=== PATIENT | female | born 1980 | race Caucasian/White ===

== ENCOUNTER → 2017-06-06 | Outpatient (REF) | payer BC ==
[2017-06-06 20:48] LABS: MEAN CORPUSCULAR HEMOGLOBIN 28.6 pg (27.0-33.0); MEAN CORPUSCULAR HGB CONC 32.9 g/dl (32.0-36.5); MEAN CORPUSCULAR VOLUME 86.9 fl (80.0-96.0); PLATELET COUNT, AUTOMATED 306 10^3/uL (150-450); RED CELL DISTRIBUTION WIDTH 12.9 % (11.5-14.5); WHITE BLOOD COUNT 9.5 10^3/uL (4.0-10.0)
[2017-06-06 21:01] LABS: ALBUMIN 3.8 GM/DL (3.2-5.2); ALBUMIN/GLOBULIN RATIO 1.12 (1.00-1.93); ALKALINE PHOSPHATASE 27 U/L (45-117); ALT/SGPT 23 U/L (12-78); ANION GAP 5 MEQ/L (8-16); AST/SGOT 12 U/L (15-37); BILIRUBIN,TOTAL 0.3 MG/DL (0.2-1.0); BLOOD UREA NITROGEN 11 MG/DL (7-18); CALCIUM LEVEL 9.4 MG/DL (8.5-10.1); CARBON DIOXIDE LEVEL 31 MEQ/L (21-32); CHLORIDE LEVEL 105 MEQ/L (98-107); CREATININE FOR GFR 0.76 MG/DL (0.55-1.02); GLOMERULAR FILTRATION RATE > 60.0 (>60); GLUCOSE, FASTING 65 MG/DL (70-105); POTASSIUM SERUM 4.6 MEQ/L (3.5-5.1); SODIUM LEVEL 141 MEQ/L (136-145); TOTAL PROTEIN 7.2 GM/DL (6.4-8.2)
== END ==
LOC: M SFHCLERA 17:29
PROVIDERS: ATTEND Physician Assistant
DX: K21.9 Gastro-esophageal reflux disease without esophagitis (principal); R63.5 Abnormal weight gain; Z20.9 Contact with and (suspected) exposure to unspecified communicable disease

== ENCOUNTER → 2017-08-23 | Outpatient (REF) | payer BC | LOC: M SFHCWAGY 15:30 | DX: Z12.4 Encounter for screening for malignant neoplasm of cervix (principal) | CPT/HCPCS: G0123 ==

== ENCOUNTER 2018-01-22 05:47 | Emergency (ER) | payer BC ==
[2018-01-22 06:49] LABS: BASO # 0.1 10^3/uL (0.0-0.2); BASO % 0.7 % (0.0-1.0); EOS # 0.3 10^3/uL (0.0-0.50); EOS % 3.5 % (0.0-3.0); HEMATOCRIT 38.6 % (36.0-47.0); HEMOGLOBIN 12.8 g/dl (12.0-15.5); IMMATURE GRANULOCYTE % 0.3 % (0-3.0); LYMPH # 2.6 10^3/uL (1.5-4.5); LYMPH % 36.8 % (24.0-44.0); MEAN CORPUSCULAR HEMOGLOBIN 28.2 pg (27.0-33.0); MEAN CORPUSCULAR HGB CONC 33.2 g/dl (32.0-36.5); MONO # 0.5 10^3/uL (0.0-0.8); MONO % 7.3 % (0.0-5.0); NEUTROPHILS # 3.7 10^3/uL (1.8-7.7); NEUTROPHILS % 51.4 % (36.0-66.0); PLATELET COUNT, AUTOMATED 250 10^3/uL (150-450); RED BLOOD COUNT 4.54 10^6/uL (4.00-5.40); RED CELL DISTRIBUTION WIDTH 13.1 % (11.5-14.5); WHITE BLOOD COUNT 7.2 10^3/uL (4.0-10.0)
[2018-01-22 07:05] LABS: CONTROL LINE HCG INT CTR LINE PRESENT; HCG, SERUM QUALITATIVE NEGATIVE (NEGATIVE)
[2018-01-22 07:19] LABS: ALBUMIN 3.6 GM/DL (3.2-5.2); ALBUMIN/GLOBULIN RATIO 1.09 (1.00-1.93); ALKALINE PHOSPHATASE 29 U/L (45-117); ALT/SGPT 29 U/L (12-78); AMYLASE 46 U/L (25-115); ANION GAP 6 MEQ/L (8-16); AST/SGOT 16 U/L (7-37); BILIRUBIN,DIRECT < 0.1 MG/DL (0.0-0.2); BILIRUBIN,TOTAL 0.2 MG/DL (0.2-1.0); BLOOD UREA NITROGEN 18 MG/DL (7-18); CALCIUM LEVEL 8.7 MG/DL (8.5-10.1); CARBON DIOXIDE LEVEL 25 MEQ/L (21-32); CHLORIDE LEVEL 110 MEQ/L (98-107); CREATININE FOR GFR 0.83 MG/DL (0.55-1.30); GLOMERULAR FILTRATION RATE > 60.0 (>60); GLUCOSE, FASTING 98 MG/DL (70-100); LIPASE 198 U/L (73-393); POTASSIUM SERUM 4.3 MEQ/L (3.5-5.1); SODIUM LEVEL 141 MEQ/L (136-145); TOTAL PROTEIN 6.9 GM/DL (6.4-8.2)
== END 2018-01-22 10:04 | disposition home or self-care (01) ==
LOC: M ED 05:47
DX: K80.20 Calculus of gallbladder without cholecystitis without obstruction (principal); I10 Essential (primary) hypertension; R10.10 Upper abdominal pain, unspecified; K76.0 Fatty (change of) liver, not elsewhere classified; E03.9 Hypothyroidism, unspecified; L40.9 Psoriasis, unspecified; Z79.899 Other long term (current) drug therapy; Z88.8 Allergy status to other drugs, medicaments and biological substances
CPT/HCPCS: 76705

== ENCOUNTER 2018-02-07 10:42 | Day surgery (SDC) | payer BC ==
[~2018-02-07 10:42] MED LIST: LIDOCAINE 2% MDV 20 ML VIAL As Ordered; PROPOFOL 200 MG/20 ML VIAL As Ordered
[2018-02-07] MEDS: NS 1,000 ML IV (10:56)
== END 2018-02-07 11:48 | disposition home or self-care (01) ==
LOC: M OPP 10:42
DX: K29.70 Gastritis, unspecified, without bleeding (principal); E03.9 Hypothyroidism, unspecified; K21.9 Gastro-esophageal reflux disease without esophagitis; Z88.8 Allergy status to other drugs, medicaments and biological substances; Z87.19 Personal history of other diseases of the digestive system
CPT/HCPCS: 43239

== ENCOUNTER 2018-03-19 07:11 | Day surgery (SDC) | payer SELFPAY, BC ==
[2018-03-19] MEDS: LR 1,000 ML IV ×2 (07:55→10:03)
[2018-03-19 08:11] LABS: CONTROL LINE UCG INT CTR LINE PRESENT; URINE PREG TEST NEGATIVE (NEGATIVE)
[2018-03-19] MEDS ORDERED: MIDAZOLAM INJ 2 MG/2 ML VIAL (J2250) As Ordered (09:19)
[2018-03-19] MEDS ORDERED: PROPOFOL 200 MG/20 ML VIAL As Ordered (09:19)
[2018-03-19] MEDS ORDERED: LIDOCAINE 2% INJ 100 MG/5 ML SDV (FOR ANES.) As Ordered (09:19)
[2018-03-19] MEDS ORDERED: ONDANSETRON 4MG/2ML VIAL (J2405) As Ordered (09:19)
[2018-03-19] MEDS ORDERED: ROCURONIUM BROMIDE 50 MG/5 ML VIAL As Ordered (09:19)
[2018-03-19] MEDS ORDERED: fentaNYL 100 MCG/2 ML INJECTION (J3010) As Ordered (09:19)
[2018-03-19] MEDS ORDERED: dexameTHASONE 4 MG/ML 1ML VIAL (J1100) As Ordered (09:19)
[2018-03-19] MEDS ORDERED: KETOROLAC 60 MG/2 ML VIAL (J1885) As Ordered (09:25)
[2018-03-19] MEDS ORDERED: GLYCOPYRROLATE INJ 0.2 MG/ML 2 ML VIAL As Ordered ×2 (09:37)
[2018-03-19] MEDS ORDERED: NEOSTIGMINE 10 MG/10 ML VIAL (J2710) As Ordered (09:37)
[2018-03-19] MEDS: BUPIVACAINE/EPIN 0.25% 30 ML VIAL As Ordered (09:49)
[2018-03-19] MEDS ORDERED: NORCO, ANEXSIA 5/325MG TABLET (HYDROcodone/ACETAMINOPHEN) PO (10:30)
[2018-03-19] MEDS ORDERED: HYDROMORPHONE HCL 0.5 MG/ 0.5 ML SYRINGE (J1170 PER 1) IV (10:30)
[2018-03-19] MEDS ORDERED: ONDANSETRON 4MG/2ML VIAL (J2405) IV (10:30)
[2018-03-19] MEDS ORDERED: fentaNYL 100 MCG/2 ML INJECTION (J3010) IV (10:30)
[2018-03-19] MEDS: PERCOCET 5MG/325MG TAB PO ×2 (10:40→14:04)
[2018-03-19] MEDS ORDERED: PERCOCET 5MG/325MG TAB As Ordered (14:01)
== END 2018-03-19 14:35 | disposition home or self-care (01) ==
LOC: M SDC 07:11
DX: K80.20 Calculus of gallbladder without cholecystitis without obstruction (principal); E03.9 Hypothyroidism, unspecified; K21.9 Gastro-esophageal reflux disease without esophagitis; Z88.1 Allergy status to other antibiotic agents
CPT/HCPCS: 47562

== ENCOUNTER → 2020-08-18 | Outpatient (CLI) | payer SELFPAY ==
[~2020-08-18] MED LIST changes: -LIDOCAINE 2% MDV 20 ML VIAL As Ordered; +OMEP-358 PO; -PROPOFOL 200 MG/20 ML VIAL As Ordered
== END ==
LOC: M LABSMTC 13:42
PROVIDERS: ATTEND Pediatrics
DX: Z20.822 Contact with and (suspected) exposure to COVID-19 (principal)

== ENCOUNTER → 2021-01-15 | Outpatient (REF) | payer OTHER | LOC: M LAB REF 18:14 | PROVIDERS: ATTEND Physician Assistant | DX: L13.8 Other specified bullous disorders (principal) ==

== ENCOUNTER → 2021-01-25 | Outpatient (CLI) | payer OTHER ==
[2021-01-25 12:11] LABS: HEMATOCRIT 45.3 % (36.0-47.0); HEMOGLOBIN 14.4 g/dl (12.0-15.5); MEAN CORPUSCULAR HEMOGLOBIN 27.8 pg (27.0-33.0); MEAN CORPUSCULAR HGB CONC 31.8 g/dl (32.0-36.5); MEAN CORPUSCULAR VOLUME 87.5 fl (80.0-96.0); PLATELET COUNT, AUTOMATED 288 10^3/uL (150-450); RED BLOOD COUNT 5.18 10^6/uL (4.00-5.40); WHITE BLOOD COUNT 7.4 10^3/uL (4.0-10.0)
[2021-01-25 12:38] LABS: ALBUMIN 3.7 GM/DL (3.2-5.2); ALT/SGPT 38 U/L (12-78); BILIRUBIN,DIRECT < 0.1 MG/DL (0.0-0.2); BILIRUBIN,TOTAL 0.3 MG/DL (0.2-1.0)
[2021-01-26 16:12] LABS: G6PD2 5.24 x10E6/uL (3.77-5.28)
== END ==
LOC: M LAB 11:04
PROVIDERS: ATTEND Physician Assistant
DX: Z79.899 Other long term (current) drug therapy (principal)

== ENCOUNTER → 2021-02-08 | Outpatient (CLI) | payer OTHER ==
[2021-02-08 16:00] LABS: HEMATOCRIT 44.5 % (36.0-47.0); HEMOGLOBIN 14.2 g/dl (12.0-15.5); MEAN CORPUSCULAR HEMOGLOBIN 27.8 pg (27.0-33.0); MEAN CORPUSCULAR HGB CONC 31.9 g/dl (32.0-36.5); MEAN CORPUSCULAR VOLUME 87.1 fl (80.0-96.0); PLATELET COUNT, AUTOMATED 293 10^3/uL (150-450); RED BLOOD COUNT 5.11 10^6/uL (4.00-5.40); WHITE BLOOD COUNT 7.6 10^3/uL (4.0-10.0)
[2021-02-08 16:31] LABS: ALBUMIN 3.6 GM/DL (3.2-5.2); BILIRUBIN,DIRECT 0.1 MG/DL (0.0-0.2); BILIRUBIN,TOTAL 0.5 MG/DL (0.2-1.0); TOTAL PROTEIN 6.6 GM/DL (6.4-8.2)
== END ==
LOC: M WUC 13:02
PROVIDERS: ATTEND Physician Assistant
DX: L13.8 Other specified bullous disorders (principal)

== ENCOUNTER → 2021-03-05 | Outpatient (CLI) | payer OTHER ==
[2021-03-05 16:18] LABS: HEMATOCRIT 44.7 % (36.0-47.0); HEMOGLOBIN 14.1 g/dl (12.0-15.5); MEAN CORPUSCULAR HEMOGLOBIN 27.5 pg (27.0-33.0); MEAN CORPUSCULAR HGB CONC 31.5 g/dl (32.0-36.5); MEAN CORPUSCULAR VOLUME 87.1 fl (80.0-96.0); PLATELET COUNT, AUTOMATED 303 10^3/uL (150-450); RED BLOOD COUNT 5.13 10^6/uL (4.00-5.40); WHITE BLOOD COUNT 7.7 10^3/uL (4.0-10.0)
[2021-03-05 16:48] LABS: BILIRUBIN,DIRECT 0.1 MG/DL (0.0-0.2); BILIRUBIN,TOTAL 0.3 MG/DL (0.2-1.0); TOTAL PROTEIN 6.9 GM/DL (6.4-8.2)
== END ==
LOC: M WUC 11:01
PROVIDERS: ATTEND Physician Assistant
DX: Z79.899 Other long term (current) drug therapy (principal)

== ENCOUNTER → 2021-03-10 | Outpatient (REF) | payer OTHER | LOC: M SFHCWAGY 13:07 | PROVIDERS: ATTEND Nurse Practitioner Women's Health | DX: Z12.4 Encounter for screening for malignant neoplasm of cervix (principal); Z77.9 Other contact with and (suspected) exposures hazardous to health ==

== ENCOUNTER → 2021-04-28 | Outpatient (REF) | payer OTHER | LOC: M SFHCLERA 19:32 | PROVIDERS: ATTEND Nurse Practitioner Family | DX: R30.0 Dysuria (principal) ==

== ENCOUNTER 2021-05-01 14:36 | Emergency (ER) | payer MEDICAID, OTHER ==
[~2021-05-01] VITALS: Ht 165.1 cm; Wt 105.5 kg
[2021-05-01] MEDS ORDERED: NITR100C2 (14:47)
[2021-05-01] MEDS ORDERED: TACR0.1O (14:47)
[2021-05-01] MEDS ORDERED: PHEN1TAB73 (14:47)
[2021-05-01] MEDS ORDERED: DAPS25TA2 (14:47)
[2021-05-01] MEDS ORDERED: KETOROLAC 30 MG/ML 1ML VIAL IV ONE ×2 (15:55→16:55)
[2021-05-01 15:58] LABS: BASO % 0.3 % (0.0-1.0); EOS # 0.1 10^3/uL (0.0-0.5); EOS % 0.4 % (0.0-3.0); HEMATOCRIT 43.4 % (36.0-47.0); HEMOGLOBIN 14.2 g/dl (12.0-15.5); LYMPH # 1.8 10^3/uL (1.5-5.0); LYMPH % 12.9 % (24.0-44.0); MEAN CORPUSCULAR HEMOGLOBIN 27.7 pg (27.0-33.0); MEAN CORPUSCULAR HGB CONC 32.7 g/dl (32.0-36.5); MEAN CORPUSCULAR VOLUME 84.8 fl (80.0-96.0); MONO # 0.7 10^3/uL (0.0-0.8); MONO % 5.1 % (2.0-8.0); NEUTROPHILS # 11.2 10^3/uL (1.5-8.5); NEUTROPHILS % 80.9 % (36.0-66.0); PLATELET COUNT, AUTOMATED 317 10^3/uL (150-450); RED BLOOD COUNT 5.12 10^6/uL (4.00-5.40); WHITE BLOOD COUNT 13.8 10^3/uL (4.0-10.0)
[2021-05-01 16:18] LABS: ALBUMIN 3.6 GM/DL (3.2-5.2); ALT/SGPT 21 U/L (12-78); BILIRUBIN,DIRECT 0.1 MG/DL (0.0-0.2); BILIRUBIN,TOTAL 0.4 MG/DL (0.2-1.0); BLOOD UREA NITROGEN 12 MG/DL (7-18); CALCIUM LEVEL 9.2 MG/DL (8.5-10.1); CARBON DIOXIDE LEVEL 26 MEQ/L (21-32); CHLORIDE LEVEL 105 MEQ/L (98-107); GLOMERULAR FILTRATION RATE > 60.0 (>58); GLUCOSE, FASTING 82 MG/DL (70-100); LIPASE 113 U/L (73-393); POTASSIUM SERUM 3.9 MEQ/L (3.5-5.1); SODIUM LEVEL 140 MEQ/L (136-145); TOTAL PROTEIN 7.2 GM/DL (6.4-8.2)
--- NOTE | 2021-05-01 16:36 | REP ---
INDICATION: left flank pain ?stone. COMPARISON: 06/26/2008 the only prior a contrast-enhanced exam TECHNIQUE: Standard helical technique without intravenous or oral bowel preparatory contrast. Stone protocol utilized due to left flank pain. FINDINGS: The lung bases are clear. The patient is status post cholecystectomy since the last exam. The liver, spleen, pancreas, adrenal glands, and kidneys are unremarkable. There is no nephroureterolithiasis, hydronephrosis, or hydroureter. The bowel loops and the mesenteries are unremarkable. The abdominal aorta and para-aortic regions are unchanged. In the left hemipelvis there is a 4 cm sized poorly defined area of low-density suspicious for complex ovarian cyst. An IUD is seen within the uterus. This is essentially unchanged. There is no change in the osseous structures. IMPRESSION: Possible complex left ovarian cyst. Examination is otherwise unremarkable. <Electronically signed by Kan Rivera > 05/01/21 [id number]
--- NOTE | 2021-05-01 18:32 | REP ---
INDICATION: ovarian cyst ?torsion. COMPARISON: None. TECHNIQUE: Transvesical and transvaginal imaging FINDINGS: The uterus measures 8.1 x 5.7 x 5.5 cm. The parenchymal echo pattern is within normal limits. The endometrial echo complex is smooth and unremarkable appearing measuring 6 mm in its greatest thickness. A specular reflection is seen within the endometrial cavity consistent with an IUD the tip of which appears to be within the lower uterine segment. All portions of the IBD are not imaged. The right ovary measures 2.5 x 2.2 x 1.8 cm. Within the right ovary there is a 1.3 cm sized hypoechoic area likely a decompressing hemorrhagic cyst. The right ovarian RI is 0.57 The left ovary measures 5.4 x 3.5 x 3.8 cm. Within the left ovary there is a 5 x 3.2 x 3 cm sized complex mixed echo structure suggestive of a hemorrhagic cyst or multiple abutting complex cysts. Adjacent to the left ovary the adipose tissue appears echogenic. There is a small amount of free fluid in cul-de-sac. Incidental note is made of nabothian cyst. Urinary bladder measures 4 x 1 x 5 cm IMPRESSION: 1. There is an IUD in place. All portions of the ID were not completely imaged. Exact placement cannot be determined, however, the tip appears to be in the lower uterine segment. 2. Complex appearing left ovarian cyst or potential developing tubo-ovarian abscess. 3. Likely small decompressing right ovarian hemorrhagic cyst. 4. There is no evidence of torsion at this time. 5. Follow-up is suggested. <Electronically signed by Kan Rivera > 05/01/21 [id number]
[2021-05-01] MEDS ORDERED: DIFL150T PO (18:52)
[2021-05-01] MEDS ORDERED: KETO10TAB PO (18:53)
[2021-05-01 19:06] VITALS: BP 133/75
--- NOTE | 2021-05-02 06:44 | ED PDOC ---
Post-Departure Follow-Up pelvic us faxed to dr miranda and [facility] for follow up Dacia Cote MD May 02, 2021 06:44
== END 2021-05-01 19:08 | disposition home or self-care (01) ==
LOC: M ED 14:36
DX: N39.0 Urinary tract infection, site not specified (principal); N83.202 Unspecified ovarian cyst, left side; Z97.5 Presence of (intrauterine) contraceptive device; N80.9 Endometriosis, unspecified; Z79.899 Other long term (current) drug therapy
CPT/HCPCS: 74176; 76830; 76856; 80048; 80076; 83690; 84702; 85025; 93976; 96374; 96375; 99284; J1885

== ENCOUNTER → 2021-05-13 | Outpatient (CLI) | payer OTHER ==
[~2021-05-13] MED LIST changes: +DAPS25TA2; +DIFL150T PO; +KETO10TAB PO; +NITR100C2; +PHEN1TAB73; +TACR0.1O
--- NOTE | 2021-05-13 11:31 | REP ---
INDICATION: SCR MAMMO. COMPARISON: None TECHNIQUE: Digital screening mammography was carried out bilaterally in the CC and MLO projections using both 2D and 3D modalities. Today's examination is initial screening examination. By history, the patient has no complaints of a palpable breast abnormality or other significant breast complaints. FINDINGS: The breasts are symmetric in size and shape. A few scattered dense heterogenous nodular fibroglandular elements are seen bilaterally. There are no suspicious calcifications. There is no skin thickening or nipple retraction. In the lower inner quadrant of each breast there is a potential slightly irregular density. No other suspicious features are seen in either breast. The [place] volumetric breast density pattern is b. IMPRESSION: BIRADS/ACR category 0 mammogram. Potential asymmetric densities seen in each breast as described above and for which diagnostic DBT spot compression views are recommended in the CC and MLO projections along with diagnostic ultrasonography if indicated. This patient's Tyrer-Cuzick lifetime breast cancer risk assessment score is 10.1%. This mammogram was interpreted with the aid of an FDA-approved computer-aided detection system. The patient states she had a clinical breast exam in March 2021. The patient letter being requested is M0. RECOMMENDATION: As above <Electronically signed by Kan Rivera > 05/13/21 [id number]
== END ==
LOC: M WHC 09:21
PROVIDERS: ATTEND Nurse Practitioner Women's Health
DX: R92.8 Other abnormal and inconclusive findings on diagnostic imaging of breast (principal)

== ENCOUNTER → 2021-06-03 | Outpatient (CLI) | payer OTHER, SELFPAY ==
--- NOTE | 2021-06-03 15:34 | REP ---
INDICATION: BILATERAL ADD VIEWS. COMPARISON: 05/13/2021. TECHNIQUE: Spot compression magnification views with tomosynthesis performed bilaterally. Focused bilateral breast ultrasound medially. FINDINGS: A smoothly marginated 6 mm nodule is confirmed medially in the right breast approximately 9 cm from the nipple. A smoothly marginated nodule approximately 5 mm in diameter is confirmed medially in the left breast approximately 8 cm from the nipple. Real-time sonographic evaluation of medial right breast demonstrates a cystic appearing structure at 5 o'clock 5 x 2 x 5 mm. There are internal echoes which could represent reverberation artifact. In the medial left breast at 9 o'clock there is a hypoechoic cystic appearing nodule 6 x 4 x 3 mm. IMPRESSION: BIRADS/ACR category 3, probably benign. Smoothly marginated nodule is seen in the medial aspect of each breast. By ultrasound these appear somewhat cystic but contain internal echoes which could represent reverberation artifact. Recommend six-month follow-up bilateral mammogram and ultrasound to ensure stability. This mammogram was interpreted with the aid of an FDA-approved computer-aided detection system. The patient letter being requested is M3. RECOMMENDATION: Recommend six-month follow-up ultrasound and mammography bilaterally. <Electronically signed by Roscoe Billy > 06/03/21 [id number]
== END ==
LOC: M WHC 13:03
PROVIDERS: ATTEND Nurse Practitioner Women's Health
DX: N63.14 Unspecified lump in the right breast, lower inner quadrant (principal); N63.25 Unspecified lump in the left breast, overlapping quadrants
CPT/HCPCS: 76642; 77066; G0279

== ENCOUNTER → 2021-12-17 | Outpatient (CLI) | payer BC | LOC: M WHC 10:54 | PROVIDERS: ATTEND Advanced Practice Midwife | DX: Z53.9 Procedure and treatment not carried out, unspecified reason (principal) ==

== ENCOUNTER → 2022-05-10 | Outpatient (REF) | payer BC | LOC: M WUC 10:19 | PROVIDERS: ATTEND Physician Assistant Medical | DX: N39.0 Urinary tract infection, site not specified (principal) ==

== ENCOUNTER → 2023-04-14 | Outpatient (REF) | payer BC ==
[~2023-04-14] MED LIST changes: +BENZ200C70
[2023-04-14 21:08] LABS: GC DNA AMPLIFICATION POSITIVE (NEGATIVE)
== END ==
LOC: M LAB REF 16:16
PROVIDERS: ATTEND Nurse Practitioner Family
DX: R30.0 Dysuria (principal); Z11.3 Encounter for screening for infections with a predominantly sexual mode of transmission

== ENCOUNTER 2023-04-15 12:42 | Emergency (ER) | payer BC ==
[~2023-04-15] VITALS: Ht 165.1 cm; Wt 124.7 kg
[~2023-04-15 12:42] MED LIST changes: -BENZ200C70
[2023-04-15] MEDS ORDERED: BENZ200C70 (12:52)
[2023-04-15] MEDS ORDERED: AZITHROMYCIN 250MG TABLET PO ONE (14:25)
[2023-04-15] MEDS ORDERED: GENTAMICIN 240 MG in D5W 50 ML IM ONE (14:25)
[2023-04-15] MEDS ORDERED: GENTAMICIN 10 MG/ML 2ML VIAL*PRES.FREE IM ONE (14:35)
[2023-04-15] MEDS ORDERED: GENTAMICIN SULF 80MG/2ML VIAL IM ONE (15:00)
[2023-04-15 15:05] VITALS: BP 138/74; TEMP 98; O2SAT 99
== END 2023-04-15 15:09 | disposition home or self-care (01) ==
LOC: M ED 12:42
DX: A54.9 Gonococcal infection, unspecified (principal)
CPT/HCPCS: 96372; 99283; J1580

== ENCOUNTER 2023-04-21 07:50 | Emergency (ER) | payer BC ==
[~2023-04-21] VITALS: Ht 152.4 cm; Wt 115.0 kg
[~2023-04-21 07:50] MED LIST changes: +BENZ200C70
[2023-04-21 10:27] LABS: LIPASE 34 U/L (12-53)
[2023-04-21 10:29] LABS: ALBUMIN 3.6 G/DL (3.2-5.2); ALKALINE PHOSPHATASE 29 U/L (46-116); ALT/SGPT 37 U/L (7.0-40); AST/SGOT 20 U/L (<34); BILIRUBIN,DIRECT < 0.1 MG/DL (<0.4); BILIRUBIN,TOTAL 0.4 MG/DL (0.3-1.2); BLOOD UREA NITROGEN 10 MG/DL (9-23); CALCIUM LEVEL 9.3 MG/DL (8.5-10.1); CARBON DIOXIDE LEVEL 27 MMOL/L (20-31); CHLORIDE LEVEL 105 MMOL/L (98-107); CREATININE FOR GFR 0.71 MG/DL (0.55-1.30); GLOMERULAR FILTRATION RATE > 60.0 (>58); GLUCOSE, FASTING 89 MG/DL (60-100); POTASSIUM SERUM 4.7 MMOL/L (3.5-5.1); SODIUM LEVEL 140 MMOL/L (136-145)
[2023-04-21 10:35] LABS: BASO # 0.1 10^3/uL (0.0-0.2); BASO % 0.7 % (0.0-1.0); EOS # 0.2 10^3/uL (0.0-0.5); EOS % 2.4 % (0.0-3.0); HEMATOCRIT 46.4 % (36.0-47.0); HEMOGLOBIN 14.9 g/dl (12.0-15.5); LYMPH # 2.5 10^3/uL (1.5-5.0); LYMPH % 27.8 % (24.0-44.0); MEAN CORPUSCULAR HEMOGLOBIN 27.4 pg (27.0-33.0); MEAN CORPUSCULAR HGB CONC 32.1 g/dl (32.0-36.5); MEAN CORPUSCULAR VOLUME 85.3 fl (80.0-96.0); MONO # 0.6 10^3/uL (0.0-0.8); MONO % 6.7 % (2.0-8.0); NEUTROPHILS # 5.6 10^3/uL (1.5-8.5); NEUTROPHILS % 62.2 % (36.0-66.0); PLATELET COUNT, AUTOMATED 338 10^3/uL (150-450); RED BLOOD COUNT 5.44 10^6/uL (4.00-5.40)
[2023-04-21 10:43] LABS: HCG, SERUM QUALITATIVE NEGATIVE (NEGATIVE)
[2023-04-21 12:21] LABS: GC DNA AMPLIFICATION NEGATIVE (NEGATIVE)
[2023-04-21] MEDS ORDERED: KETOROLAC 30 MG/ML 1ML VIAL IV ONE (12:35)
[2023-04-21 13:47] LABS: APPEARANCE, URINE CLEAR (CLEAR); BACTERIA, URINE AUTO NEGATIVE (NEGATIVE); BILIRUBIN, URINE AUTO NEGATIVE (NEGATIVE); BLOOD, URINE BLOOD NEGATIVE (NEGATIVE); COLOR, URINE STRAW (YELLOW); GLUCOSE, URINE (UA) AUTO NEGATIVE (NEGATIVE); KETONE, URINE AUTO NEGATIVE (NEGATIVE); LEUKOCYTE ESTERASE, URINE AUTO NEGATIVE (NEGATIVE); NITRITE, URINE AUTO NEGATIVE (NEGATIVE); PROTEIN, URINE AUTO NEGATIVE (NEGATIVE); RBC, URINE AUTO 0 /HPF (0-3); SPECIFIC GRAVITY URINE AUTO 1.008 (1.002-1.035); SQUAMOUS EPITHELIAL CELL UR AU 1 /HPF (0-6); UROBILINOGEN, URINE AUTO 0.2 mg/dL (0.0-2.0); WBC, URINE AUTO 0 /HPF (0-3)
[2023-04-21] MEDS ORDERED: METR0.7526 TOP (14:02)
[2023-04-21] MEDS ORDERED: IBUP-1022 PO (14:02)
[2023-04-21 14:21] VITALS: BP 135/94; TEMP 97.1; O2SAT 96
== END 2023-04-21 14:25 | disposition home or self-care (01) ==
LOC: M ED 07:50
DX: N76.0 Acute vaginitis (principal); M54.50 Low back pain, unspecified; N83.201 Unspecified ovarian cyst, right side
CPT/HCPCS: 76830; 76856; 80048; 80076; 81001; 83690; 84703; 85025; 87210; 87810; 87850; 93976; 96374; 99284; J1885

== ENCOUNTER 2023-09-25 08:55 | Emergency (ER) | payer BC ==
[~2023-09-25] VITALS: Ht 165.1 cm; Wt 121.7 kg
[~2023-09-25 08:55] MED LIST changes: +IBUP-1022 PO; +METR0.7526 TOP
[2023-09-25 10:16] LABS: BASO # 0.1 10^3/uL (0.0-0.2); BASO % 0.4 % (0.0-1.0); EOS # 0.1 10^3/uL (0.0-0.5); EOS % 0.3 % (0.0-3.0); HEMATOCRIT 48.1 % (36.0-47.0); HEMOGLOBIN 15.8 g/dl (12.0-15.5); LYMPH # 2.5 10^3/uL (1.5-5.0); LYMPH % 12.7 % (24.0-44.0); MEAN CORPUSCULAR HEMOGLOBIN 28.2 pg (27.0-33.0); MEAN CORPUSCULAR HGB CONC 32.8 g/dl (32.0-36.5); MEAN CORPUSCULAR VOLUME 85.7 fl (80.0-96.0); MONO # 1.1 10^3/uL (0.0-0.8); MONO % 5.5 % (2.0-8.0); NEUTROPHILS # 16.1 10^3/uL (1.5-8.5); NEUTROPHILS % 80.7 % (36.0-66.0); PLATELET COUNT, AUTOMATED 345 10^3/uL (150-450); RED BLOOD COUNT 5.61 10^6/uL (4.00-5.40); WHITE BLOOD COUNT 19.9 10^3/uL (4.0-10.0)
[2023-09-25 10:46] LABS: HCG, SERUM QUANTITATIVE < 2.6 MIU/ML (<4.2); LIPASE 29 U/L (12-53)
[2023-09-25 10:47] LABS: AMYLASE 39 U/L (30-118)
[2023-09-25 10:48] LABS: ALBUMIN 3.9 G/DL (3.2-5.2); ALKALINE PHOSPHATASE 46 U/L (46-116); ALT/SGPT 40 U/L (7.0-40); AST/SGOT 20 U/L (<34); BILIRUBIN,DIRECT 0.2 MG/DL (<0.4); BILIRUBIN,TOTAL 0.6 MG/DL (0.3-1.2); BLOOD UREA NITROGEN 10 MG/DL (9-23); CALCIUM LEVEL 9.9 MG/DL (8.5-10.1); CARBON DIOXIDE LEVEL 27 MMOL/L (20-31); CHLORIDE LEVEL 102 MMOL/L (98-107); CREATININE FOR GFR 0.77 MG/DL (0.55-1.30); GLOMERULAR FILTRATION RATE > 60.0 (>58); GLUCOSE, FASTING 99 MG/DL (60-100); POTASSIUM SERUM 4.7 MMOL/L (3.5-5.1); SODIUM LEVEL 138 MMOL/L (136-145); TOTAL PROTEIN 7.7 G/DL (5.7-8.2)
[2023-09-25] MEDS: MORPHINE 4 MG/ML 1ML VIAL IV PRN (11:18)
[2023-09-25] MEDS: ONDANSETRON 4MG 2ML VIAL IV ONE (11:18)
[2023-09-25] MEDS: NS 1,000 ML IV SCH (11:18)
[2023-09-25 11:31] LABS: RSV AMPLIFICATION NEGATIVE (NEGATIVE)
[2023-09-25] MEDS ORDERED: NITR1CAP11 PO (13:42)
[2023-09-25] MEDS ORDERED: PERC5TAB12 PO (13:43)
[2023-09-25 13:46] VITALS: BP 111/63
[2023-09-25 14:02] VITALS: O2SAT 98
[2023-09-25] MEDS: PERCOCET 5MG/325MG TAB PO ONE (14:02)
[2023-09-25] MEDS: ACETAMINOPHEN 500 MG TAB PO ONE (14:02)
[2023-09-25 14:03] VITALS: TEMP 101.9
[2023-09-25 14:47] LABS: CHLAMYDIA DNA AMPLIFICATION NEGATIVE (NEGATIVE); GC DNA AMPLIFICATION NEGATIVE (NEGATIVE)
== END 2023-09-25 14:13 | disposition home or self-care (01) ==
LOC: M ED 08:55
DX: N83.292 Other ovarian cyst, left side (principal); N80.9 Endometriosis, unspecified; Z88.8 Allergy status to other drugs, medicaments and biological substances; Z79.899 Other long term (current) drug therapy; Z79.1 Long term (current) use of non-steroidal anti-inflammatories (NSAID)
CPT/HCPCS: 74176; 76830; 76856; 80048; 80076; 81001; 82150; 83690; 84702; 85025; 87086; 87631; 87661; 87810; 87850; 93976; 96361; 96374; 96375; 99284; J2405

== ENCOUNTER → 2023-11-15 | Outpatient (CLI) | payer BC ==
[~2023-11-15] MED LIST changes: +NITR1CAP11 PO; +PERC5TAB12 PO
== END ==
LOC: M RAD 07:02
PROVIDERS: ATTEND Obstetrics & Gynecology
DX: N83.202 Unspecified ovarian cyst, left side (principal)

== ENCOUNTER → 2024-01-19 | Outpatient (REF) | payer BC ==
[~2024-01-19] MED LIST changes: +NITR100C3 PO; -NITR1CAP11 PO
[2024-01-19 22:19] LABS: Trichomonas vaginalis (AMP) NOT DETECTED (NEGATIVE)
[2024-01-19 22:42] LABS: GC DNA AMPLIFICATION NEGATIVE (NEGATIVE)
== END ==
LOC: M LAB REF 19:28
PROVIDERS: ATTEND Nurse Practitioner Family
DX: R30.0 Dysuria (principal)

== ENCOUNTER → 2024-05-11 | Outpatient (REF) | payer BC ==
[2024-05-11 22:43] LABS: GC DNA AMPLIFICATION NEGATIVE (NEGATIVE)
== END ==
LOC: M LAB REF 14:04
PROVIDERS: ATTEND Physician Assistant
DX: N76.0 Acute vaginitis (principal)

== ENCOUNTER → 2024-06-11 | Outpatient (CLI) | payer BC, OTHER ==
[2024-06-11 13:04] LABS: BASO # 0.1 10^3/uL (0.0-0.2); BASO % 0.5 % (0.0-1.0); EOS # 0.2 10^3/uL (0.0-0.5); EOS % 2.3 % (0.0-3.0); LYMPH # 2.7 10^3/uL (1.5-5.0); LYMPH % 29.4 % (24.0-44.0); MEAN CORPUSCULAR HEMOGLOBIN 28.5 pg (27.0-33.0); MEAN CORPUSCULAR HGB CONC 32.6 g/dl (32.0-36.5); MEAN CORPUSCULAR VOLUME 87.6 fl (80.0-96.0); MONO # 0.6 10^3/uL (0.0-0.8); MONO % 6.5 % (2.0-8.0); NEUTROPHILS # 5.6 10^3/uL (1.5-8.5); PLATELET COUNT, AUTOMATED 315 10^3/uL (150-450); RED BLOOD COUNT 4.91 10^6/uL (4.00-5.40); WHITE BLOOD COUNT 9.2 10^3/uL (4.0-10.0)
[2024-06-11 13:27] LABS: ALBUMIN 3.7 G/DL (3.2-5.2); ALKALINE PHOSPHATASE 33 U/L (35-104); ALT/SGPT 27 U/L (7.0-40); AST/SGOT 12 U/L (<34); BILIRUBIN,TOTAL 0.4 MG/DL (0.3-1.2); BLOOD UREA NITROGEN 12 MG/DL (9-23); CALCIUM LEVEL 9.8 MG/DL (8.5-10.1); CARBON DIOXIDE LEVEL 26 MMOL/L (20-31); CHLORIDE LEVEL 106 MMOL/L (98-107); CHOLESTEROL LEVEL 232 MG/DL (<200); CHOLESTEROL RISK RATIO 4.71 (<5); CREATININE FOR GFR 0.75 MG/DL (0.55-1.30); GLOMERULAR FILTRATION RATE > 60.0 (>58); GLUCOSE, FASTING 82 MG/DL (60-100); HDL CHOLESTEROL 49.2 MG/DL (>40); LDL CHOLESTEROL 122.2 MG/DL (<100); NON-HDL-C 182.8 MG/DL; POTASSIUM SERUM 4.4 MMOL/L (3.5-5.1); SODIUM LEVEL 138 MMOL/L (136-145); TRIGLYCERIDES LEVEL 303 MG/DL (<150)
[2024-06-11 13:31] LABS: THYROID STIMULATING HORMONE 13.403 uIU/ML (0.55-4.78)
[2024-06-11 13:32] LABS: FREE T4 0.93 NG/DL (0.89-1.76); HEMOGLOBIN A1c 5.4 % (4.0-6.0)
[2024-06-13 13:42] LABS: ANA SCREEN, IFA NEGATIVE (NEGATIVE)
== END ==
LOC: M WUC 10:51
PROVIDERS: ATTEND Physician Assistant
DX: L13.8 Other specified bullous disorders (principal); R63.5 Abnormal weight gain

== ENCOUNTER → 2024-06-11 | Outpatient (REF) | payer BC, OTHER | LOC: M SFHCLERA 09:57 | PROVIDERS: ATTEND Physician Assistant | DX: R63.5 Abnormal weight gain (principal); L13.8 Other specified bullous disorders; Z53.9 Procedure and treatment not carried out, unspecified reason ==

== ENCOUNTER → 2024-11-25 | Outpatient (CLI) | payer BC ==
[2024-11-25 18:41] LABS: ALBUMIN 3.8 G/DL (3.2-5.2); ALKALINE PHOSPHATASE 37 U/L (35-104); ALT/SGPT 23 U/L (7.0-40); AST/SGOT 15 U/L (<34); BILIRUBIN,TOTAL 0.3 MG/DL (0.3-1.2); BLOOD UREA NITROGEN 9 MG/DL (9-23); CALCIUM LEVEL 10.1 MG/DL (8.5-10.1); CARBON DIOXIDE LEVEL 28 MMOL/L (20-31); CHLORIDE LEVEL 101 MMOL/L (98-107); CREATININE FOR GFR 0.71 MG/DL (0.55-1.30); GLOMERULAR FILTRATION RATE > 90.0 (>58); GLUCOSE, FASTING 88 MG/DL (60-100); POTASSIUM SERUM 4.4 MMOL/L (3.5-5.1); SODIUM LEVEL 139 MMOL/L (136-145)
[2024-11-25 18:51] LABS: HEMATOCRIT 46.2 % (36.0-47.0); HEMOGLOBIN 14.3 g/dl (12.0-15.5); MEAN CORPUSCULAR HEMOGLOBIN 27.3 pg (27.0-33.0); MEAN CORPUSCULAR VOLUME 88.2 fl (80.0-96.0); PLATELET COUNT, AUTOMATED 363 10^3/uL (150-450); RED BLOOD COUNT 5.24 10^6/uL (4.00-5.40); WHITE BLOOD COUNT 9.8 10^3/uL (4.0-10.0)
== END ==
LOC: M WUC 13:15
PROVIDERS: ATTEND Nurse Practitioner Family
DX: L13.8 Other specified bullous disorders (principal)

== ENCOUNTER → 2024-12-04 | Outpatient (CLI) | payer BC | LOC: M WUC 13:48 | PROVIDERS: ATTEND Obstetrics & Gynecology | DX: N89.8 Other specified noninflammatory disorders of vagina (principal) ==

== ENCOUNTER → 2024-12-04 | Outpatient (CLI) | payer BC ==
[2024-12-04 18:24] LABS: HEMOGLOBIN A1c 5.2 % (4.0-6.0)
[2024-12-04 18:28] LABS: THYROXINE (T4) 8.7 UG/DL (4.5-10.9)
[2024-12-04 18:29] LABS: FREE THYROXINE INDEX 2.5 % (1.3-4.8); T UPTAKE 28.7 % (22.5-37.0); THYROID STIMULATING HORMONE 3.911 uIU/ML (0.55-4.78)
[2024-12-09 12:47] LABS: INSULIN LEVEL 32.6 uIU/mL (<=18.4)
[2024-12-10 15:52] LABS: G6PD ADULT 23.6 U/g Hgb (7.0-20.5)
[2024-12-11 00:27] LABS: TESTOSTERONE FREE (DIRECT) 4.8 pg/mL (0.1-6.4)
== END ==
LOC: M WUC 13:51
PROVIDERS: ATTEND Nurse Practitioner Family
DX: L13.8 Other specified bullous disorders (principal); E66.9 Obesity, unspecified